=== PATIENT | male | born 1950 | race Caucasian/White ===

== ENCOUNTER → 2017-05-30 | Outpatient (CLI) | payer OTHER ==
[2017-05-30 16:34] LABS: Basophils # (auto) 0.1 uL; Basophils % (auto) 0.6 % (0.0-2.0); CONDITION Y; Eosinophils # (auto) 0.2 uL; Eosinophils % (auto) 1.9 % (0.0-7.0); Hematocrit 43.6 % (41.0-53.0); Hemoglobin 14.7 g/dL (13.5-17.5); Lymphocytes # (auto) 1.7 uL; Lymphocytes % (auto) 19.9 % (10.0-50.0); Mean Corpuscular Hemoglobin 31.9 pg (28.0-32.0); Mean Corpuscular Hgb Conc. 33.7 g/dL (32.0-36.0); Mean Corpuscular Volume 94.4 fL (80.0-100.0); Mean Platelet Volume 8.8 fL (7.4-10.4); Monocytes # (auto) 1.2 uL; Monocytes % (auto) 13.8 % (0.0-12.0); Neutrophils # (auto) 5.6 uL; Neutrophils % (auto) 63.8 % (37.0-80.0); Platelet Count (auto) 272 10^3/uL (140-450); Red Cell Distribution Width 13.7 % (11.6-16.0); White Blood Cell 8.8 10^3/uL (4.4-10.8)
[2017-05-30 16:52] LABS: Partial Thromboplastin Time 32.1 sec (22.64-33.71); Prothrombin Time 10.9 sec (9.37-12.3)
[2017-05-30 17:12] LABS: Albumin 3.7 g/dL (3.4-5.0); BUN/Creatinine Ratio 14.1; Bilirubin, Total 0.4 mg/dL (0.2-1.0); Calcium 8.5 mg/dL (8.5-10.1); Potassium 4.1 mmol/L (3.5-5.1); Total Protein 7.7 g/dL (6.4-8.2)
== END | disposition home or self-care (01) ==
LOC: LAB 15:49
DX: Z01.810 Encounter for preprocedural cardiovascular examination (principal)
CPT/HCPCS: 36415; 80053; 85025; 85610; 85730

== ENCOUNTER → 2017-08-14 | Outpatient (CLI) | payer OTHER | END | disposition home or self-care (01) | LOC: XYW 10:41 | PROVIDERS: ATTEND Internal Medicine Cardiovascular Disease | DX: Z01.818 Encounter for other preprocedural examination (principal); I08.0 Rheumatic disorders of both mitral and aortic valves; I25.2 Old myocardial infarction | CPT/HCPCS: 93306 ==

== ENCOUNTER 2017-10-02 10:46 | Inpatient (IN) | payer OTHER ==
[~2017-10-02] VITALS: Ht 177.8 cm; Wt 108.7 kg
[2017-10-02] MEDS ORDERED: LORazepam 2MG/ML-1ML VIAL IV ONE ×2 (11:00→15:30)
[2017-10-02] MEDS ORDERED: HALOPERIDOL LACTATE 5 MG/ML INJ VIAL IM ONE (11:00)
[2017-10-02] MEDS ORDERED: diphenhdrAMINE HCL 50 MG/1 ML VL IV ONE ×2 (11:00→15:30)
[2017-10-02 11:16] LABS: Hematocrit 42.2 % (41.0-53.0); Hemoglobin 14.1 g/dL (13.5-17.5); Mean Corpuscular Hemoglobin 30.9 pg (28.0-32.0); Mean Corpuscular Hgb Conc. 33.3 g/dL (32.0-36.0); Mean Corpuscular Volume 92.7 fL (80.0-100.0); Mean Platelet Volume 8.6 fL (6.9-10.8); Platelet Count (auto) 247 10^3/uL (140-450); White Blood Cell 7.9 10^3/uL (4.4-10.8)
[2017-10-02 11:18] LABS: Metamyelocytes % 0; Myelocytes % 0; Promyelocytes % 0; Reactive Lymphocytes 0
[2017-10-02 11:28] LABS: Anion Gap 11 (5-15); BUN/Creatinine Ratio 11.6; Blood Urea Nitrogen 13 mg/dL (7-18); Calcium 8.7 mg/dL (8.5-10.1); Carbon Dioxide 22 mmol/L (21-32); Chloride 104 mmol/L (98-107); GFR African American 85 mL/min; GFR Non-African American 70 mL/min; Glucose 95 mg/dL (74-106); Potassium 4.3 mmol/L (3.5-5.1); Sodium 137 mmol/L (136-145)
[2017-10-02 11:33] LABS: Platelet Estimate Adequate
[2017-10-02 15:28] LABS: Urine Bilirubin Negative (Negative); Urine Blood Negative /uL (Negative); Urine Color Yellow (Yellow); Urine Glucose Normal (Normal); Urine Ketone TRACE (Negative); Urine Nitrite Negative (Negative); Urine RBC <1 /hpf (0 - 3); Urine Urobilinogen Normal (Negative); Urine pH 5.5 (5.0-8.0)
[2017-10-02] MEDS ORDERED: ACETAMINOPHEN 500 MG TAB PO PRN (15:45)
[2017-10-02] MEDS ORDERED: ONDANSETRON HCL 4 MG/2 ML VIAL IV PRN (15:45)
[2017-10-02] MEDS ORDERED: SPIRONOLACTONE 25 MG TAB PO ONE (15:45)
[2017-10-02] MEDS ORDERED: traMADol HCL 50 MG TAB PO PRN (15:45)
[2017-10-02] MEDS ORDERED: ASPirin-EC 81 mg tab PO ONE (16:00)
[2017-10-02] MEDS ORDERED: CLOPIDOGREL BISULFATE 75 MG TAB PO ONE (16:00)
[2017-10-02] MEDS: QUEtiapine FUMARATE 25 MG TAB PO SCH (22:35)
[2017-10-02] MEDS: ATORVASTATIN 20 MG TAB PO SCH (22:35)
[2017-10-02] MEDS: METOPROLOL TARTRATE 25 MG TAB PO SCH (22:35)
[2017-10-02] MEDS: HALOPERIDOL LACTATE 5 MG/ML INJ VIAL IM PRN (23:32)
[2017-10-03 05:56] LABS: Hematocrit 44.1 % (41.0-53.0); Hemoglobin 14.9 g/dL (13.5-17.5); Mean Corpuscular Hemoglobin 31.1 pg (28.0-32.0); Mean Corpuscular Hgb Conc. 33.8 g/dL (32.0-36.0); Mean Corpuscular Volume 92.1 fL (80.0-100.0); Mean Platelet Volume 8.8 fL (6.9-10.8); Platelet Count (auto) 260 10^3/uL (140-450); Red Cell Distribution Width 13.7 % (11.8-14.3); White Blood Cell 8.8 10^3/uL (4.4-10.8)
[2017-10-03 06:00] VITALS: BP 125/75
[2017-10-03 06:13] LABS: Metamyelocytes % 0; Myelocytes % 0; Promyelocytes % 0; Reactive Lymphocytes 0
[2017-10-03 06:14] LABS: BUN/Creatinine Ratio 12.5; Calcium 8.8 mg/dL (8.5-10.1); Potassium 3.9 mmol/L (3.5-5.1)
[2017-10-03 06:49] LABS: Large Platelets FEW
[2017-10-03 06:50] LABS: Anisocytosis Slight; Platelet Estimate Adequa
[2017-10-03 09:00] VITALS: BP 113/75
[2017-10-03] MEDS: ASPirin-EC 81 mg tab PO SCH (09:34)
[2017-10-03] MEDS: CLOPIDOGREL BISULFATE 75 MG TAB PO SCH (09:34)
[2017-10-03] MEDS: METOPROLOL TARTRATE 25 MG TAB PO SCH ×2 (09:34→21:44)
[2017-10-03] MEDS: LORazepam 2MG/ML-1ML VIAL IV PRN (09:35)
[2017-10-03] MEDS: QUEtiapine FUMARATE 25 MG TAB PO SCH ×2 (10:35→21:44)
[2017-10-03] MEDS: HALOPERIDOL LACTATE 5 MG/ML INJ VIAL IM PRN (12:47)
[2017-10-03 13:00] VITALS: BP 125/76
[2017-10-03 17:00] VITALS: BP 125/76
[2017-10-03] MEDS ORDERED: CLOP75TA41 PO (18:27)
[2017-10-03] MEDS ORDERED: METO25TA5 PO (18:27)
[2017-10-03] MEDS ORDERED: HYDR-4683 PO (18:27)
[2017-10-03] MEDS ORDERED: SIMV-8 PO (18:27)
[2017-10-03] MEDS: ATORVASTATIN 20 MG TAB PO SCH (21:44)
[2017-10-04] MEDS: LORazepam 2MG/ML-1ML VIAL IV PRN ×2 (02:33→11:14)
[2017-10-04 04:33] VITALS: BP 125/53
[2017-10-04 06:09] LABS: Hemoglobin 15.2 g/dL (13.5-17.5); Mean Corpuscular Hgb Conc. 33.7 g/dL (32.0-36.0); Mean Platelet Volume 8.3 fL (6.9-10.8); Platelet Count (auto) 253 10^3/uL (140-450); Red Cell Distribution Width 13.8 % (11.8-14.3); White Blood Cell 9.4 10^3/uL (4.4-10.8)
[2017-10-04 06:27] LABS: Metamyelocytes % 0; Myelocytes % 0; Promyelocytes % 0; Reactive Lymphocytes 0
[2017-10-04 06:43] LABS: Albumin 3.2 g/dL (3.4-5.0); Anion Gap 9 (5-15); Blood Urea Nitrogen 17 mg/dL (7-18); Calcium 8.5 mg/dL (8.5-10.1); Carbon Dioxide 23 mmol/L (21-32); Chloride 104 mmol/L (98-107); Glucose 88 mg/dL (74-106); Potassium 3.7 mmol/L (3.5-5.1); Sodium 136 mmol/L (136-145)
[2017-10-04 06:45] LABS: Aspartate Aminotransferase 27 U/L (15-37); BUN/Creatinine Ratio 16.2; GFR African American 91 mL/min; GFR Non-African American 75 mL/min
[2017-10-04 07:06] LABS: Alkaline Phosphatase 113 U/L (45-117); Bilirubin, Total 0.6 mg/dL (0.2-1.0); Total Protein 7.9 g/dL (6.4-8.2)
[2017-10-04 07:33] LABS: Platelet Estimate Adequate
[2017-10-04 08:00] VITALS: BP 116/70
[2017-10-04] MEDS: QUEtiapine FUMARATE 25 MG TAB PO SCH ×2 (10:09→21:39)
[2017-10-04] MEDS: CLOPIDOGREL BISULFATE 75 MG TAB PO SCH (10:10)
[2017-10-04] MEDS: ASPirin-EC 81 mg tab PO SCH (10:10)
[2017-10-04] MEDS: METOPROLOL TARTRATE 25 MG TAB PO SCH ×2 (10:10→21:41)
[2017-10-04 12:00] VITALS: BP 114/75
[2017-10-04] MEDS ORDERED: SODIUM CHLORIDE 0.9% 1,000 ML IV ONE (12:00)
[2017-10-04 12:46] LABS: Temperature: 23.5 C (20.0-25.0)
[2017-10-04 17:00] VITALS: BP 127/83
[2017-10-04] MEDS: ATORVASTATIN 20 MG TAB PO SCH (21:40)
[2017-10-04 22:00] VITALS: BP 141/77
[2017-10-04 22:50] VITALS: BP 115/77
[2017-10-05] MEDS: HALOPERIDOL LACTATE 5 MG/ML INJ VIAL IM PRN (04:24)
[2017-10-05 05:00] VITALS: BP 131/77
[2017-10-05] MEDS ORDERED: QUET25TA37 PO (08:56)
[2017-10-05] MEDS ORDERED: METO25TA3 PO (08:56)
[2017-10-05] MEDS ORDERED: TRAM50TA2 PO (08:56)
[2017-10-05] MEDS ORDERED: HAL5T PO (08:58)
[2017-10-05 09:34] VITALS: BP 120/75
[2017-10-05] MEDS: QUEtiapine FUMARATE 25 MG TAB PO SCH ×2 (09:52→21:36)
[2017-10-05] MEDS: METOPROLOL TARTRATE 25 MG TAB PO SCH ×2 (09:53→21:37)
[2017-10-05 13:00] VITALS: BP 144/90
[2017-10-05 17:00] VITALS: BP 125/81
[2017-10-05] MEDS: ATORVASTATIN 20 MG TAB PO SCH (21:36)
[2017-10-05 22:03] VITALS: BP 109/72
[2017-10-06 06:04] VITALS: BP 134/79
[2017-10-06] MEDS: METOPROLOL TARTRATE 25 MG TAB PO SCH ×2 (10:06→22:40)
[2017-10-06] MEDS: QUEtiapine FUMARATE 25 MG TAB PO SCH ×2 (10:06→22:40)
[2017-10-06] MEDS: ATORVASTATIN 20 MG TAB PO SCH (22:39)
[2017-10-07 05:05] VITALS: BP 126/86
[2017-10-07 09:00] VITALS: BP 128/78
[2017-10-07] MEDS: METOPROLOL TARTRATE 25 MG TAB PO SCH (10:18)
[2017-10-07] MEDS: QUEtiapine FUMARATE 25 MG TAB PO SCH (10:18)
[2017-10-07 11:55] VITALS: BP 121/82
[2017-10-07 12:34] VITALS: BP 121/82
[2017-10-10 09:58] LABS: Non-Treponemal Screening VDRL Normal (.)
== END 2017-10-07 15:05 | disposition hospice, home (50) | DRG 71 ==
LOC: ER 10:46 → EDBD 10:46 → OVERFLOW 10:47 → CENTRAL 10-03 06:00
PROVIDERS: ADMIT Internal Medicine; ATTEND Internal Medicine
DX: G93.41 Metabolic encephalopathy (principal); I50.22 Chronic systolic (congestive) heart failure; C49.12 Malignant neoplasm of connective and soft tissue of left upper limb, including shoulder; E44.1 Mild protein-calorie malnutrition; I11.0 Hypertensive heart disease with heart failure; F20.9 Schizophrenia, unspecified; G30.9 Alzheimer's disease, unspecified; R26.9 Unspecified abnormalities of gait and mobility; F02.80 Dementia in other diseases classified elsewhere, unspecified severity, without behavioral disturbance, psychotic disturbance, mood disturbance, and anxiety; J44.9 Chronic obstructive pulmonary disease, unspecified; D72.821 Monocytosis (symptomatic); E78.5 Hyperlipidemia, unspecified; F31.9 Bipolar disorder, unspecified; I25.10 Atherosclerotic heart disease of native coronary artery without angina pectoris; R31.0 Gross hematuria; R32 Unspecified urinary incontinence; E66.9 Obesity, unspecified; Z51.5 Encounter for palliative care; Z66 Do not resuscitate; Z72.0 Tobacco use; Z68.34 Body mass index [BMI] 34.0-34.9, adult; Z79.899 Other long term (current) drug therapy; Z83.3 Family history of diabetes mellitus; I25.2 Old myocardial infarction; Z98.61 Coronary angioplasty status; Z90.49 Acquired absence of other specified parts of digestive tract
CPT/HCPCS: 36415; 70450; 71010; 73030; 76775; 80048; 80053; 80307; 80320; 81001; 82140; 82607; 82746; 84439; 84443; 84484; 85007; 85027; 86592; 86703; 92610; 94761; 95819; 96372; 96374; 96375; 96376; A4565

== ENCOUNTER 2017-12-06 17:22 | Inpatient (IN) | payer OTHER ==
[~2017-12-06] VITALS: Ht 185.4 cm; Wt 103.2 kg
[~2017-12-06 17:22] MED LIST: CLOP75TA41 PO; HAL5T PO; HYDR-4683 PO; METO25TA3 PO; METO25TA5 PO; QUET25TA37 PO; SIMV-8 PO; TRAM50TA2 PO
[2017-12-06] MEDS ORDERED: FUROSEMIDE 40 MG/4 ML VIAL ONE (17:27)
[2017-12-06] MEDS ORDERED: methylPREDNISolone SOD SUCC 125 MG/2 ML VL ONE (17:27)
[2017-12-06] MEDS ORDERED: methylPREDNISolone SOD SUCC 125 MG/2 ML VL IV ONE ×2 (17:30)
[2017-12-06] MEDS ORDERED: FUROSEMIDE 40 MG/4 ML VIAL IV ONE (17:30)
[2017-12-06 18:01] LABS: Basophils # (auto) 0.1 uL; Basophils % (auto) 0.7 % (0.0-2.0); Eosinophils # (auto) 0.3 uL; Eosinophils % (auto) 2.7 % (0.0-7.0); Hematocrit 47.4 % (41.0-53.0); Hemoglobin 15.7 g/dL (13.5-17.5); Lymphocytes # (auto) 1.5 uL; Lymphocytes % (auto) 15.6 % (10.0-50.0); Mean Corpuscular Hemoglobin 30.3 pg (28.0-32.0); Mean Corpuscular Hgb Conc. 33.1 g/dL (32.0-36.0); Mean Corpuscular Volume 91.5 fL (80.0-100.0); Monocytes # (auto) 1.5 uL; Monocytes % (auto) 16.3 % (0.0-12.0); Neutrophils % (auto) 64.7 % (37.0-80.0); Nucleated Red Blood Cells % 0.2 %; Platelet Count (auto) 229 10^3/uL (140-450); Red Blood Cells 5.18 10^6/uL (4.5-5.90); Red Cell Distribution Width 14.2 % (11.8-14.3); White Blood Cell 9.3 10^3/uL (4.4-10.8)
[2017-12-06 18:18] LABS: Alanine Aminotransferase 19 U/L (16-61); Albumin 3.5 g/dL (3.4-5.0); Anion Gap 7 (5-15); Aspartate Aminotransferase 23 U/L (15-37); BUN/Creatinine Ratio 13.8; Blood Urea Nitrogen 12 mg/dL (7-18); Calcium 8.5 mg/dL (8.5-10.1); Carbon Dioxide 28 mmol/L (21-32); Chloride 104 mmol/L (98-107); GFR African American 113 mL/min; GFR Non-African American 94 mL/min; Glucose 95 mg/dL (74-106); Magnesium 2.2 mg/dL (1.6-2.6); Potassium 4.2 mmol/L (3.5-5.1); Sodium 139 mmol/L (136-145)
[2017-12-06 18:23] LABS: Alkaline Phosphatase 141 U/L (45-117); Bilirubin, Total 0.6 mg/dL (0.2-1.0); Total Protein 8.3 g/dL (6.4-8.2)
[2017-12-06] MEDS ORDERED: OSELTAMIVIR 75 MG CAP PO ONE (19:00)
[2017-12-06] MEDS ORDERED: HALOPERIDOL 5 MG TAB PO PRN (19:00)
[2017-12-06] MEDS ORDERED: TEMAZEPAM 15 MG CAP PO PRN (19:00)
[2017-12-06] MEDS ORDERED: MORPHINE SULFATE 4 MG/ML SYR/VIAL IV PRN ×2 (19:00)
[2017-12-06] MEDS ORDERED: ALBUTEROL SULF 2.5 MG/0.5ML(0.5%) NEB SOLN NEB PRN (19:00)
[2017-12-06] MEDS ORDERED: ACETAMINOPHEN 500 MG TAB PO PRN (19:00)
[2017-12-06] MEDS ORDERED: HYDROcodone-ACET 5/325MG TAB PO PRN (19:00)
[2017-12-06] MEDS ORDERED: LACTULOSE 20Gm/30ML SOLN PO PRN (19:00)
[2017-12-06] MEDS ORDERED: PROMETHAZINE HCL 25 MG/ML 1ML IV PRN (19:00)
[2017-12-06] MEDS ORDERED: LORazepam 0.5 MG TAB PO PRN (19:00)
[2017-12-06] MEDS ORDERED: NITROGLYCERIN 0.4 MG SL TAB SL PRN (19:00)
[2017-12-06 19:25] VITALS: BP 146/92
[2017-12-06] MEDS: DOXYCYCLINE HYC 100MG/250ML 250 ML IV SCH (19:33)
[2017-12-06] MEDS: SODIUM CHLOR 0.9% PF (SALINE LOCK) 10ML VIAL IV SCH (21:52)
[2017-12-06] MEDS: ATORVASTATIN 20 MG TAB PO SCH (21:53)
[2017-12-06] MEDS: QUEtiapine FUMARATE 25 MG TAB PO SCH (21:54)
[2017-12-06 22:12] LABS: Urine WBC None Seen /hpf (0 - 3)
[2017-12-06 22:36] LABS: Urine Bacteria NONE SEEN /hpf (None Seen); Urine Blood 2+ /uL (Negative); Urine Hyaline Cast FEW /lpf (0 - 2); Urine Mucus FEW (None Seen); Urine Specific Gravity 1.008 (1.001-1.035)
[2017-12-06] MEDS: methylPREDNISolone SOD SUCC 40 MG/ML VL IV SCH (23:32)
[2017-12-07] MEDS: IPRATROPIUM BROM 0.5 MG/2.5ML INH SOL NEB SCH ×4 (00:44→18:58)
[2017-12-07] MEDS: ALBUTEROL SULF 2.5 MG/0.5ML(0.5%) NEB SOLN NEB SCH ×4 (00:45→18:58)
[2017-12-07 02:45] VITALS: BP 165/98
[2017-12-07] MEDS ORDERED: methylPREDNISolone SOD SUCC 125 MG/2 ML VL IV ONE (03:45)
[2017-12-07] MEDS ORDERED: LORazepam 2MG/ML-1ML VIAL IV ONE ×2 (03:45→06:00)
[2017-12-07] MEDS ORDERED: ALBUTEROL SULF 2.5 MG/0.5ML(0.5%) NEB SOLN NEB ONE (03:45)
[2017-12-07] MEDS ORDERED: IPRATROPIUM BROM 0.5 MG/2.5ML INH SOL NEB ONE (03:45)
[2017-12-07 03:55] VITALS: BP 117/60
[2017-12-07] MEDS: SODIUM CHLOR 0.9% PF (SALINE LOCK) 10ML VIAL IV SCH ×3 (05:56→21:29)
[2017-12-07] MEDS: methylPREDNISolone SOD SUCC 40 MG/ML VL IV SCH ×3 (06:10→18:22)
[2017-12-07] MEDS: DOXYCYCLINE HYC 100MG/250ML 250 ML IV SCH ×2 (07:03→20:35)
[2017-12-07] MEDS: METOPROLOL SUCCINATE XL 50 MG TAB PO SCH (10:00)
[2017-12-07] MEDS ORDERED: FUROSEMIDE 40 MG/4 ML VIAL IV SCH (10:00)
[2017-12-07] MEDS ORDERED: POTASSIUM CHL 20 Meq TABLET PO SCH (10:00)
[2017-12-07] MEDS: ENALAPRIL MALEATE 2.5 MG TAB PO SCH (10:00)
[2017-12-07] MEDS ORDERED: ASPirin 81 mg TAB PO SCH (10:00)
[2017-12-07] MEDS: QUEtiapine FUMARATE 25 MG TAB PO SCH ×2 (10:00→21:28)
[2017-12-07] MEDS: CLOPIDOGREL BISULFATE 75 MG TAB PO SCH (10:00)
[2017-12-07] MEDS ORDERED: OSELTAMIVIR 75 MG CAP PO SCH (10:00)
[2017-12-07] MEDS ORDERED: IOHEXOL 350 MG/ML 100ML IJ ONE (12:04)
[2017-12-07] MEDS: LORazepam 2MG/ML-1ML VIAL IV PRN ×2 (12:24→22:19)
[2017-12-07] MEDS ORDERED: HALOPERIDOL LACTATE 5 MG/ML INJ VIAL IV PRN (13:15)
[2017-12-07] MEDS ORDERED: LABETALOL HCL 5 MG/ML ML 20ML VIAL IV PRN (13:15)
[2017-12-07] MEDS ORDERED: HYOS0.1283 PO (15:22)
[2017-12-07] MEDS: SODIUM CHLORIDE 0.9% 1,000 ML IV SCH (15:30)
[2017-12-07 16:47] VITALS: BP 115/72
[2017-12-07] MEDS: ENOXAPARIN SOD 40 MG/0.4 ML SYRINGE SC SCH (18:18)
[2017-12-07] MEDS: ATORVASTATIN 20 MG TAB PO SCH (21:28)
[2017-12-07 21:29] VITALS: BP 122/76
[2017-12-08] MEDS: methylPREDNISolone SOD SUCC 40 MG/ML VL IV SCH ×4 (00:02→18:07)
[2017-12-08] MEDS: ALBUTEROL SULF 2.5 MG/0.5ML(0.5%) NEB SOLN NEB SCH ×5 (01:14→23:50)
[2017-12-08] MEDS: IPRATROPIUM BROM 0.5 MG/2.5ML INH SOL NEB SCH ×5 (01:14→23:50)
[2017-12-08 04:59] VITALS: BP 105/72
[2017-12-08 05:54] LABS: Basophils # (auto) 0 uL; Eosinophils # (auto) 0 uL; Hematocrit 46.7 % (41.0-53.0); Hemoglobin 15.6 g/dL (13.5-17.5); Lymphocytes # (auto) 0.5 uL; Mean Corpuscular Hemoglobin 30.3 pg (28.0-32.0); Mean Corpuscular Hgb Conc. 33.4 g/dL (32.0-36.0); Mean Corpuscular Volume 90.6 fL (80.0-100.0); Monocytes # (auto) 0.8 uL; Monocytes % (auto) 3.7 % (0.0-12.0); Neutrophils # (auto) 21.5 uL; Neutrophils % (auto) 94.3 % (37.0-80.0); Platelet Count (auto) 245 10^3/uL (140-450); Red Blood Cells 5.15 10^6/uL (4.5-5.90); White Blood Cell 22.8 10^3/uL (4.4-10.8)
[2017-12-08 06:04] LABS: Albumin 3.4 g/dL (3.4-5.0); BUN/Creatinine Ratio 26.5; Bilirubin, Total 0.4 mg/dL (0.2-1.0); Calcium 8.9 mg/dL (8.5-10.1); Potassium 3.9 mmol/L (3.5-5.1); Total Protein 7.9 g/dL (6.4-8.2)
[2017-12-08] MEDS: SODIUM CHLORIDE 0.9% 1,000 ML IV SCH ×2 (06:24→18:10)
[2017-12-08] MEDS: SODIUM CHLOR 0.9% PF (SALINE LOCK) 10ML VIAL IV SCH ×3 (06:26→22:05)
[2017-12-08] MEDS: DOXYCYCLINE HYC 100MG/250ML 250 ML IV SCH ×2 (06:50→19:00)
[2017-12-08 08:45] VITALS: BP 122/80
[2017-12-08] MEDS: ENOXAPARIN SOD 40 MG/0.4 ML SYRINGE SC SCH (09:30)
[2017-12-08] MEDS: QUEtiapine FUMARATE 25 MG TAB PO SCH ×2 (09:31→22:00)
[2017-12-08] MEDS: METOPROLOL SUCCINATE XL 50 MG TAB PO SCH (09:31)
[2017-12-08] MEDS: ASPirin 81 mg TAB PO SCH (09:31)
[2017-12-08] MEDS: CLOPIDOGREL BISULFATE 75 MG TAB PO SCH (09:31)
[2017-12-08] MEDS: ENALAPRIL MALEATE 2.5 MG TAB PO SCH (09:32)
[2017-12-08 13:00] VITALS: BP 119/72
[2017-12-08] MEDS ORDERED: ENOXAPARIN SOD 60 MG/0.6 ML SYRINGE SC ONE (13:15)
[2017-12-08] MEDS: PIPERACILLIN-TAZOB 3.375GM 50 ML IV SCH ×2 (13:54→20:00)
[2017-12-08 14:03] LABS: Urine Bacteria NONE SEEN /hpf (None Seen); Urine Blood 2+ /uL (Negative); Urine Mucus FEW (None Seen); Urine Specific Gravity 1.039 (1.001-1.035); Urine WBC 7 /hpf (0 - 3)
[2017-12-08 16:43] VITALS: BP 120/73
[2017-12-08 22:00] VITALS: BP 112/82
[2017-12-08] MEDS: ATORVASTATIN 20 MG TAB PO SCH (22:00)
[2017-12-08] MEDS: ENOXAPARIN SOD 100 MG/1 ML SYRINGE SC SCH (22:04)
[2017-12-09] MEDS: methylPREDNISolone SOD SUCC 40 MG/ML VL IV SCH ×4 (00:30→17:39)
[2017-12-09] MEDS: PIPERACILLIN-TAZOB 3.375GM 50 ML IV SCH ×4 (02:35→20:59)
[2017-12-09] MEDS: LORazepam 2MG/ML-1ML VIAL IV PRN ×2 (04:29→22:19)
[2017-12-09 05:00] VITALS: BP 104/67
[2017-12-09] MEDS: ALBUTEROL SULF 2.5 MG/0.5ML(0.5%) NEB SOLN NEB SCH ×4 (05:43→23:55)
[2017-12-09] MEDS: IPRATROPIUM BROM 0.5 MG/2.5ML INH SOL NEB SCH ×4 (05:43→23:54)
[2017-12-09] MEDS: SODIUM CHLOR 0.9% PF (SALINE LOCK) 10ML VIAL IV SCH ×3 (05:52→22:20)
[2017-12-09] MEDS: DOXYCYCLINE HYC 100MG/250ML 250 ML IV SCH ×2 (06:31→19:00)
[2017-12-09 08:52] VITALS: BP 135/86
[2017-12-09] MEDS: SODIUM CHLORIDE 0.9% 1,000 ML IV SCH ×2 (12:48→20:50)
[2017-12-09] MEDS: CLOPIDOGREL BISULFATE 75 MG TAB PO SCH (12:49)
[2017-12-09] MEDS: QUEtiapine FUMARATE 25 MG TAB PO SCH ×2 (12:49→22:00)
[2017-12-09] MEDS: ASPirin 81 mg TAB PO SCH (12:49)
[2017-12-09] MEDS: METOPROLOL SUCCINATE XL 50 MG TAB PO SCH (12:50)
[2017-12-09] MEDS: ENALAPRIL MALEATE 2.5 MG TAB PO SCH (12:51)
[2017-12-09] MEDS: ENOXAPARIN SOD 100 MG/1 ML SYRINGE SC SCH ×2 (12:51→22:19)
[2017-12-09 13:42] VITALS: BP 115/69
[2017-12-09 17:29] VITALS: BP 107/59
[2017-12-09 20:00] VITALS: BP 104/65
[2017-12-09 21:28] VITALS: BP 104/65
[2017-12-09] MEDS: ATORVASTATIN 20 MG TAB PO SCH (22:00)
[2017-12-10] MEDS: methylPREDNISolone SOD SUCC 40 MG/ML VL IV SCH ×2 (00:46→06:39)
[2017-12-10 01:41] VITALS: BP 107/59
[2017-12-10] MEDS: PIPERACILLIN-TAZOB 3.375GM 50 ML IV SCH ×2 (01:49→09:09)
[2017-12-10 05:06] VITALS: BP 92/58
[2017-12-10] MEDS: SODIUM CHLOR 0.9% PF (SALINE LOCK) 10ML VIAL IV SCH ×3 (06:00→21:45)
[2017-12-10 06:19] LABS: Basophils # (auto) 0 uL; Eosinophils # (auto) 0 uL; Hematocrit 41.4 % (41.0-53.0); Hemoglobin 13.5 g/dL (13.5-17.5); Lymphocytes # (auto) 0.3 uL; Lymphocytes % (auto) 2.8 % (10.0-50.0); Mean Corpuscular Hemoglobin 29.9 pg (28.0-32.0); Mean Corpuscular Hgb Conc. 32.6 g/dL (32.0-36.0); Mean Corpuscular Volume 91.6 fL (80.0-100.0); Monocytes # (auto) 0.7 uL; Monocytes % (auto) 5.3 % (0.0-12.0); Neutrophils # (auto) 11.4 uL; Neutrophils % (auto) 91.9 % (37.0-80.0); Platelet Count (auto) 222 10^3/uL (140-450); Red Blood Cells 4.52 10^6/uL (4.5-5.90); Red Cell Distribution Width 14.4 % (11.8-14.3); White Blood Cell 12.4 10^3/uL (4.4-10.8)
[2017-12-10] MEDS: DOXYCYCLINE HYC 100MG/250ML 250 ML IV SCH (06:39)
[2017-12-10 06:43] LABS: Albumin 2.8 g/dL (3.4-5.0); BUN/Creatinine Ratio 26.2; Bilirubin, Total 0.6 mg/dL (0.2-1.0); Calcium 8.3 mg/dL (8.5-10.1); Potassium 3.8 mmol/L (3.5-5.1); Total Protein 6.6 g/dL (6.4-8.2)
[2017-12-10] MEDS: IPRATROPIUM BROM 0.5 MG/2.5ML INH SOL NEB SCH ×3 (07:40→20:27)
[2017-12-10] MEDS: ALBUTEROL SULF 2.5 MG/0.5ML(0.5%) NEB SOLN NEB SCH ×3 (07:40→20:27)
[2017-12-10 08:01] VITALS: BP 108/68
[2017-12-10] MEDS: ASPirin 81 mg TAB PO SCH (09:09)
[2017-12-10] MEDS: QUEtiapine FUMARATE 25 MG TAB PO SCH ×2 (09:10→21:45)
[2017-12-10] MEDS: CLOPIDOGREL BISULFATE 75 MG TAB PO SCH (09:10)
[2017-12-10] MEDS: ENOXAPARIN SOD 100 MG/1 ML SYRINGE SC SCH (09:52)
[2017-12-10] MEDS: METOPROLOL SUCCINATE XL 50 MG TAB PO SCH (10:00)
[2017-12-10] MEDS: ENALAPRIL MALEATE 2.5 MG TAB PO SCH (10:00)
[2017-12-10] MEDS: LACTULOSE 20Gm/30ML SOLN PO PRN (13:03)
[2017-12-10 13:59] VITALS: BP 117/69
[2017-12-10 17:29] VITALS: BP 121/74
[2017-12-10] MEDS: ACETYLCYSTEINE 10 %(100MG/ML) SOL 4ML NEB SCH (20:27)
[2017-12-10] MEDS: DOXYCYCLINE 100 MG TAB/CAP PO SCH (21:45)
[2017-12-10] MEDS: ATORVASTATIN 20 MG TAB PO SCH (21:45)
[2017-12-10 22:00] VITALS: BP 109/71
[2017-12-11] MEDS: ACETYLCYSTEINE 10 %(100MG/ML) SOL 4ML NEB SCH ×5 (01:22→19:23)
[2017-12-11] MEDS: ALBUTEROL SULF 2.5 MG/0.5ML(0.5%) NEB SOLN NEB SCH ×4 (01:22→19:23)
[2017-12-11] MEDS: IPRATROPIUM BROM 0.5 MG/2.5ML INH SOL NEB SCH ×4 (01:22→19:23)
[2017-12-11 05:00] VITALS: BP 127/81
[2017-12-11] MEDS: SODIUM CHLOR 0.9% PF (SALINE LOCK) 10ML VIAL IV SCH ×3 (05:37→21:47)
[2017-12-11 08:27] VITALS: BP 122/72
[2017-12-11] MEDS: ASPirin 81 mg TAB PO SCH (09:39)
[2017-12-11] MEDS: QUEtiapine FUMARATE 25 MG TAB PO SCH ×2 (09:40→21:47)
[2017-12-11] MEDS: LACTULOSE 20Gm/30ML SOLN PO PRN (09:40)
[2017-12-11] MEDS: DOXYCYCLINE 100 MG TAB/CAP PO SCH ×2 (09:40→21:47)
[2017-12-11] MEDS: predniSONE 20 MG TAB PO SCH (09:40)
[2017-12-11] MEDS: CLOPIDOGREL BISULFATE 75 MG TAB PO SCH (09:40)
[2017-12-11] MEDS: ENOXAPARIN SOD 40 MG/0.4 ML SYRINGE SC SCH (09:40)
[2017-12-11] MEDS: METOPROLOL SUCCINATE XL 50 MG TAB PO SCH (10:00)
[2017-12-11] MEDS: ENALAPRIL MALEATE 2.5 MG TAB PO SCH (10:00)
[2017-12-11 12:00] VITALS: BP 127/85
[2017-12-11] MEDS ORDERED: FLEET ENEMA(ADULT) 135 ML PR ONE (12:45)
[2017-12-11] MEDS: LORazepam 2MG/ML-1ML VIAL IV PRN (16:38)
[2017-12-11 17:16] VITALS: BP 131/86
[2017-12-11] MEDS: ATORVASTATIN 20 MG TAB PO SCH (21:47)
[2017-12-11 22:00] VITALS: BP 135/82
[2017-12-12] MEDS: IPRATROPIUM BROM 0.5 MG/2.5ML INH SOL NEB SCH ×3 (00:19→12:49)
[2017-12-12] MEDS: ALBUTEROL SULF 2.5 MG/0.5ML(0.5%) NEB SOLN NEB SCH ×3 (00:19→12:49)
[2017-12-12] MEDS: ACETYLCYSTEINE 10 %(100MG/ML) SOL 4ML NEB SCH ×3 (00:20→12:52)
[2017-12-12 04:58] VITALS: BP 117/79
[2017-12-12] MEDS: SODIUM CHLOR 0.9% PF (SALINE LOCK) 10ML VIAL IV SCH (05:15)
[2017-12-12 05:44] LABS: Basophils # (auto) 0 uL; Eosinophils # (auto) 0.2 uL; Eosinophils % (auto) 1.7 % (0.0-7.0); Hematocrit 44.9 % (41.0-53.0); Hemoglobin 14.8 g/dL (13.5-17.5); Lymphocytes # (auto) 1.2 uL; Lymphocytes % (auto) 12.4 % (10.0-50.0); Monocytes % (auto) 10.4 % (0.0-12.0); Neutrophils # (auto) 7.2 uL; Neutrophils % (auto) 75.5 % (37.0-80.0); Nucleated Red Blood Cells % 0.1 %; Platelet Count (auto) 217 10^3/uL (140-450); Red Blood Cells 4.93 10^6/uL (4.5-5.90); Red Cell Distribution Width 14.1 % (11.8-14.3); White Blood Cell 9.5 10^3/uL (4.4-10.8)
[2017-12-12 05:57] LABS: BUN/Creatinine Ratio 25.8; Calcium 8.1 mg/dL (8.5-10.1); Potassium 3.5 mmol/L (3.5-5.1)
[2017-12-12 08:00] VITALS: BP 120/84
[2017-12-12 08:59] VITALS: BP 120/84
[2017-12-12] MEDS ORDERED: ENA2.5T PO (09:15)
[2017-12-12] MEDS ORDERED: METO50TA7 PO (09:15)
[2017-12-12] MEDS ORDERED: FURO40TA4 PO (09:15)
[2017-12-12] MEDS ORDERED: ASPI81CH43 PO (09:15)
[2017-12-12] MEDS ORDERED: DOX100T PO (09:17)
[2017-12-12] MEDS ORDERED: ALB5IS NEB (09:30)
[2017-12-12] MEDS ORDERED: IPR002IS NEB (09:30)
[2017-12-12] MEDS: ENOXAPARIN SOD 40 MG/0.4 ML SYRINGE SC SCH (10:00)
[2017-12-12] MEDS: DOXYCYCLINE 100 MG TAB/CAP PO SCH (10:12)
[2017-12-12] MEDS: ENALAPRIL MALEATE 2.5 MG TAB PO SCH (10:13)
[2017-12-12] MEDS: predniSONE 20 MG TAB PO SCH (10:13)
[2017-12-12] MEDS: METOPROLOL SUCCINATE XL 50 MG TAB PO SCH (10:14)
[2017-12-12] MEDS: ASPirin 81 mg TAB PO SCH (10:14)
[2017-12-12] MEDS: QUEtiapine FUMARATE 25 MG TAB PO SCH (10:15)
== END 2017-12-12 13:30 | disposition hospice, home (50) | DRG 193 ==
LOC: EDBD 17:22 → ER 17:27 → TELE 17:28 → TELE-WESTW 12-07 15:30 → WEST WING 12-10 14:32
PROVIDERS: ADMIT Internal Medicine; ATTEND Internal Medicine
PROC: 5A09357 Assistance with Respiratory Ventilation, Less than 24 Consecutive Hours, Continuous Positive Airway Pressure (ICD-10-PCS; principal; 2017-12-06)
PROC: 5A09357 Assistance with Respiratory Ventilation, Less than 24 Consecutive Hours, Continuous Positive Airway Pressure (ICD-10-PCS; 2017-12-07)
DX: J18.9 Pneumonia, unspecified organism (principal); J96.00 Acute respiratory failure, unspecified whether with hypoxia or hypercapnia; I50.43 Acute on chronic combined systolic (congestive) and diastolic (congestive) heart failure; C49.12 Malignant neoplasm of connective and soft tissue of left upper limb, including shoulder; J98.11 Atelectasis; J44.1 Chronic obstructive pulmonary disease with (acute) exacerbation; I11.0 Hypertensive heart disease with heart failure; G30.9 Alzheimer's disease, unspecified; F02.80 Dementia in other diseases classified elsewhere, unspecified severity, without behavioral disturbance, psychotic disturbance, mood disturbance, and anxiety; F20.9 Schizophrenia, unspecified; Z66 Do not resuscitate; E78.5 Hyperlipidemia, unspecified; F31.9 Bipolar disorder, unspecified; I25.5 Ischemic cardiomyopathy; I25.10 Atherosclerotic heart disease of native coronary artery without angina pectoris; J20.9 Acute bronchitis, unspecified; Z87.891 Personal history of nicotine dependence; Z95.5 Presence of coronary angioplasty implant and graft
CPT/HCPCS: 36415; 36600; 71045; 71275; 80048; 80053; 81001; 82805; 83735; 83880; 84484; 85025; 85379; 87040; 87086; 87804; 92610; 93005; 93970; 94640; 94660; 94761; 96365; 96375; 96376; 97116; 97163; 97530; J2543; J3490